=== PATIENT | male | born 1995 | race Caucasian/White ===

== ENCOUNTER 2016-11-22 15:26 | Emergency (ER) | payer OTHER ==
[2016-11-22 15:39] VITALS: BP 155/80; PULSE 96; TEMP 98.1; BMI 26.1
[2016-11-22] MEDS ORDERED: SULFAMETHOXAZOLE/TRIMETHOPRIM 800MG/160MG D.S. TABLET PO ONE (17:08)
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
[2016-11-22] MEDS ORDERED: SULFAMETHOXAZOLE/TRIMETHOPRIM 800MG/160MG D.S. TABLET ONE (17:32)
== END 2016-11-22 17:50 | disposition home or self-care (01) ==
LOC: JERFT 15:26
DX: L02.416 Cutaneous abscess of left lower limb (principal); L02.415 Cutaneous abscess of right lower limb
CPT/HCPCS: 87070; 87186; 87205; 99281-25

== ENCOUNTER 2017-02-02 23:16 | Emergency (ER) | payer OTHER ==
[2017-02-02 23:33] VITALS: BP 147/77; PULSE 101; TEMP 98; BMI 25.0
[2017-02-03 00:56] LABS: URINE APPEARANCE CLEAR; URINE BILIRUBIN NEGATIVE (NEGATIVE); URINE BLOOD NEGATIVE (NEGATIVE); URINE COLOR YELLOW; URINE GLUCOSE (UA) NEGATIVE (NEGATIVE); URINE KETONE NEGATIVE (NEGATIVE); URINE LEUK ESTERASE NEGATIVE (NEGATIVE); URINE NITRITE NEGATIVE (NEGATIVE); URINE PROTEIN NEGATIVE (NEGATIVE); URINE UROBILINOGEN 4.0 E.U/dl E.U./dl (0.2-1.0)
--- NOTE | 2017-02-03 01:47 | PDOC ---
History of Present Illness - General Chief Complaint: Abscess Boil Stated Complaint: BOIL Time Seen by Provider: 02/02/17 23:49 History Source: Patient Exam Limitations: No Limitations - History of Present Illness Initial Comments: 02/03/17 01:42 Patient is a 21 year old male with h/o cellulitis of the right arm here with c/ o tender swelling to the left groin. Patient states the swelling has been there x 1 month but yesterday the swelling became tender. Denies any penile discharge, no cellulitis, STI. pmd: does not remember name PMHX: as above psochx: neg cig, drug, etoh ALL: NKDA GENERAL/CONSTITUTIONAL: [No fever or chills. No weakness. No weight change.] HEAD, EYES, EARS, NOSE AND THROAT: [No change in vision. No ear pain or discharge. No sore throat.] CARDIOVASCULAR: [No chest pain or shortness of breath.] RESPIRATORY: [No cough, wheezing, or hemoptysis.] GASTROINTESTINAL: [No nausea, vomiting, diarrhea or constipation. No rectal bleeding.] GENITOURINARY: [No dysuria, frequency, or change in urination.] MUSCULOSKELETAL: [No joint or muscle swelling or pain. No neck or back pain.] SKIN AND BREASTS: [No rash or easy bruising.] NEUROLOGIC: [No headache, vertigo, loss of consciousness, or loss of sensation.] PSYCHIATRIC: [No depression or anxiety.] ENDOCRINE: [No increased thirst. No abnormal weight change.] HEMATOLOGIC/LYMPHATIC: [No anemia, easy bleeding, or history of blood clots.] ALLERGIC/IMMUNOLOGIC: [No hives or skin allergy. No latex allergy.] GENERAL: [The patient is awake, alert, and fully oriented, in no acute distress. ] HEAD: [Normal with no signs of trauma.] EYES: [Pupils equal, round and reactive to light, extraocular movements intact, sclera anicteric, conjunctiva clear.] ENT: [Ears normal, nares patent, oropharynx clear without exudates. Moist mucous membranes.] NECK: [Normal range of motion, supple without lymphadenopathy, JVD, or masses.] LUNGS: [Breath sounds equal, clear to auscultation bilaterally. No wheezes, and no crackles.] HEART: [Regular rate and rhythm, normal S1 and S2 without murmur, rub.] ABDOMEN: [Soft, nontender, normoactive bowel sounds. No guarding, no rebound. No masses.] ": uncircumcised male, no discharge from the penis, no hernia, cremateric reflexes intact, (+) tender left inguinal node, no swelling noted EXTREMITIES: [Normal range of motion, no edema. No clubbing or cyanosis. No cords, erythema, or tenderness.] NEUROLOGICAL: [Cranial nerves II through XII grossly intact. Normal speech, normal gait.] PSYCH: [Normal mood, normal affect.] SKIN: [Warm, Dry, normal turgor, no rashes or lesions noted.] Past History - Past Medical History Allergies/Adverse Reactions: Allergies Allergy/AdvReac Type Severity Reaction Status Date / Time No Known Allergies Allergy Verified 02/02/17 23:23 Home Medications: Ambulatory Orders Chlorhexidine Gluconate [Hibiclens For Decolonization -] 1 applic TP DAILY #1 bottle 11/22/16 Oxycodone HCl/Acetaminophen [Percocet 5-325 mg Tablet -] 1 - 2 tab PO Q4H PRN # 7 tablet MDD 4 11/22/16 Sulfamethoxazole/Trimethoprim [Bactrim *Ds*] 1 each PO BID #14 tablet 11/22/16 Other medical history: denies - Immunization History Immunization Up to Date: Yes - Psycho/Social/Smoking Cessation Hx Anxiety: No Suicidal Ideation: No Smoking History: Never smoked Have you smoked in the past 12 months: No Number of Cigarettes Smoked Daily: 0 Hx Alcohol Use: No Drug/Substance Use Hx: No Substance Use Type: None *Physical Exam - Vital Signs Last Vital Signs Temp Pulse Resp BP Pulse Ox 98 F 101 H 18 147/77 99 02/02/17 23:20 02/02/17 23:20 02/02/17 23:20 02/02/17 23:20 02/02/17 23:20 ED Treatment Course - ADDITIONAL ORDERS Additional order review: Laboratory Results 02/03/17 00:40 Urine Color Yellow Urine Appearance Clear Urine pH 6.0 Urine Protein Negative Urine Glucose (UA) Negative Urine Ketones Negative Urine Blood Negative Urine Nitrite Negative Urine Bilirubin Negative Urine Urobilinogen 4.0 e.u/dl Ur Leukocyte Esterase Negative Medical Decision Making - Medical Decision Making 02/03/17 01:43 Patient is a 21 year old male with h/o cellulitis of the right arm here with c/ o tender swelling to the left groin consistent with lymphangitis. no source of infection will get labs and GC/chlam. UA neg GC/chlam pending I discussed the physical exam findings, ancillary test results and final diagnoses with the patient. I answered all of the patient's questions. The patient was satisfied with the care received and felt comfortable with the discharge plan and treatment plan. The Patient agrees to follow up with the primary care physician within 24-72 hours. *DC/Admit/Observation/Transfer Diagnosis at time of Disposition: Lymphadenitis - Patient Instructions Printed Discharge Instructions: Chronic Lymphadenitis Additional Instructions: YOU must follow up with your pmd for further testing, which should include HIV testing, if your develop persistent fever, chills, your must return to the ED immediately
== END 2017-02-03 02:17 | disposition home or self-care (01) ==
LOC: JER 23:16
DX: I88.8 Other nonspecific lymphadenitis (principal)
CPT/HCPCS: 36415; 81003; 87491; 87591; 99281-25; 99282-25

== ENCOUNTER 2018-05-11 17:17 | Emergency (ER) | payer OTHER ==
[2018-05-11 17:21] VITALS: BP 135/72; PULSE 114; TEMP 101; BMI 26.6
[2018-05-11] MEDS ORDERED: ACETAMINOPHEN 325 MG TABLET (FP) PO ONE (17:29)
--- NOTE | 2018-05-11 17:29 | PDOC ---
Rapid Medical Evaluation Chief Complaint: Cold Symptoms Time Seen by Provider: 05/11/18 17:29 Medical Evaluation: Allergies Allergy/AdvReac Type Severity Reaction Status Date / Time No Known Allergies Allergy Verified 02/02/17 23:23 Vital Signs Temp Pulse Resp BP Pulse Ox 101 F H 114 H 18 135/72 97 05/11/18 17:18 05/11/18 17:18 05/11/18 17:18 05/11/18 17:18 05/11/18 17:18 05/11/18 17:29 The patient presents with a chief complaint of: sore throat, fever I have performed a brief in-person evaluation of this patient. Pertinent physical exam findings: vss, fever 101 I have ordered the following: tylenol, throat culture The patient will proceed to the ED for further evaluation. 05/11/18 17:29
--- NOTE | 2018-05-11 17:57 | PDOC ---
History of Present Illness - General Chief Complaint: Cold Symptoms Stated Complaint: COLD SYMPTOMS Time Seen by Provider: 05/11/18 17:29 - History of Present Illness Initial Comments: 05/11/18 17:53 23-year-old male with 2 days of sore throat and subjective fever Past History - Past Medical History Allergies/Adverse Reactions: Allergies Allergy/AdvReac Type Severity Reaction Status Date / Time No Known Allergies Allergy Verified 02/02/17 23:23 Home Medications: Ambulatory Orders Amoxicillin Suspension - 10.9 ml PO BID 10 Days #218 ml 05/11/18 COPD: No - Immunization History Immunization Up to Date: Yes - Suicide/Smoking/Psychosocial Hx Smoking History: Never smoked Have you smoked in the past 12 months: No Number of Cigarettes Smoked Daily: 0 Hx Alcohol Use: No Drug/Substance Use Hx: No Substance Use Type: None Review of Systems - Review of Systems Constitutional: Yes: Fever HEENTM: Yes: Throat Pain All Other Systems: Reviewed and Negative *Physical Exam - Vital Signs Last Vital Signs Temp Pulse Resp BP Pulse Ox 101 F H 114 H 18 135/72 97 05/11/18 17:18 05/11/18 17:18 05/11/18 17:18 05/11/18 17:18 05/11/18 17:18 - Physical Exam Comments: HEAD: NC/AT EYES: Conjuntiva clear Ears: Canals and TM's normal NOSE: No d/c THROAT: Moist mucous membrances, oral erythemic with exudate, uvula midline NECK: Supple with anterior adenopathy CARDIAC: S1 S2 LUNGS: CTA Full and Equal breath sounds ABDOMEN: Soft NT ND MS: Full ROM in all joints without edema NEUROLOGIC: No gross sensory or motor deficits, NVID SKIN: Normal color and temperature no lesions or rashes 05/11/18 17:53 ED Treatment Course - Medications Given in the ED: ED Medications Discontinued Medications Generic Name Dose Route Start Last Admin Trade Name Freq PRN Reason Stop Dose Admin Acetaminophen 650 mg 05/11/18 17:29 05/11/18 17:30 Tylenol - PO 05/11/18 17:30 650 mg ONCE ONE Administration Medical Decision Making - Medical Decision Making 05/11/18 17:54 impressive examination I'll treat him with amoxicillin. He is requesting oral suspension. *DC/Admit/Observation/Transfer Diagnosis at time of Disposition: Strep pharyngitis - Discharge Dispostion Disposition: HOME Condition at time of disposition: Stable Decision to Admit order: No - Prescriptions Prescriptions: Amoxicillin Suspension - 10.9 ml PO BID 10 Days #218 ml - Referrals Referrals: Abelardo Pascal [Non Staff, Medical] - - Patient Instructions Printed Discharge Instructions: Strep Throat, DI for Strep Throat Additional Instructions: Return to the emergency room should symptoms worsen or go unresolved. Please take all the antibiotics as directed. He must finish the entire course. Follow- up with the primary care physician in one to 2 days for further evaluation and treatment options. You may take Tylenol and Motrin as directed for pain and fever. Warm salt water gargles 5-6 times a day will help you with your throat pain. - Post Discharge Activity
== END 2018-05-11 18:08 | disposition home or self-care (01) ==
LOC: JERFT 17:17
DX: J02.0 Streptococcal pharyngitis (principal); B95.5 Unspecified streptococcus as the cause of diseases classified elsewhere
CPT/HCPCS: 87070; 87430; 99281-25

== ENCOUNTER 2018-12-15 05:27 | Emergency (ER) | payer OTHER ==
[2018-12-15 06:02] VITALS: TEMP 98.2; BMI 29.2
--- NOTE | 2018-12-15 06:13 | PDOC ---
History of Present Illness - General Chief Complaint: Abscess Boil Stated Complaint: PRIVATE PART PROBLEM Time Seen by Provider: 12/15/18 06:06 History Source: Patient Exam Limitations: No Limitations - History of Present Illness Initial Comments: 23 yo M w a pmh of multiple abscesses and gastric reflux presents to the ER with left testicular pain. He states the pain has been present for the past 4 days and has been getting worse. He says his testicle has been swelling up and no is red and painful. He states he has had many infections like this in the past on his right thigh and right armpit but this is the first time it has happened to his testicle. He denies fevers, chills, infections, dysuria, frequency, or urgency. PCP: Doesn't know his name Urologist: None PSH: Right armpit abscess I&D Social Hx: Smokes marijuana, drinks recreationally, denies cigarettes or other illicit drug usage Allergies: NKA, NKDA Past History - Past Medical History Allergies/Adverse Reactions: Allergies Allergy/AdvReac Type Severity Reaction Status Date / Time No Known Allergies Allergy Verified 12/15/18 06:03 Home Medications: Ambulatory Orders Clindamycin [Cleocin -] 600 mg PO Q8H 7 Days #42 capsule 12/15/18 Lactobacillus Acidophilus [Probiotic] 1 each PO DAILY #7 capsule 12/15/18 COPD: No - Immunization History Immunization Up to Date: Yes - Suicide/Smoking/Psychosocial Hx Smoking History: Never smoked Have you smoked in the past 12 months: No Number of Cigarettes Smoked Daily: 0 Information on smoking cessation initiated: No Hx Alcohol Use: Yes Drug/Substance Use Hx: No Substance Use Type: None Review of Systems - Review of Systems Able to Perform ROS?: Yes Comments:: CONSTITUTIONAL: Absent: fever, no chills, no fatigue EYES: Absent: visual changes ENT: Absent: ear pain, no sore throat CARDIOVASCULAR: Absent: chest pain, no palpitations RESPIRATORY: Absent: cough, no SOB GI: Absent: abdominal pain, no nausea, no vomiting, no constipation, no diarrhea GENITOURINARY: Present: Testicular pain Absent: dysuria, no frequency, no hematuria MUSKULOSKELETAL: Absent: back pain, no arthralgia, no myalgia SKIN: Present: rash NEURO: Absent: headache *Physical Exam - Vital Signs Last Vital Signs Temp Pulse Resp BP Pulse Ox 98.2 F 82 22 H 137/79 98 12/15/18 05:27 12/15/18 05:27 12/15/18 05:27 12/15/18 05:27 12/15/18 05:27 - Physical Exam Comments: GENERAL: Well-appearing, well-nourished. No apparent distress. HEENT: Normocephalic, atraumatic. PERRL, EOM intact. CARDIOVASCULAR: Normal S1, S2. Regular rate and rhythm. PULMONARY: No evidence of respiratory distress. Lungs clear to auscultation bilaterally. No wheezing, rales or rhonchi. ABDOMEN: Soft, non-distended, non-tender. EXTREMITIES: Normal ROM in all four extremities. No gross deformities. SKIN: Warm, dry. NEUROLOGICAL: No focal neurological deficits. Male Genitalia: positive: testicular tenderness (left sided), testicular mass ( there is a painful, erythematous, indurated mass on the inferior pole of the left testicle. ). negative: discharge, epididymus tender, inguinal hernia, CVAT ED Treatment Course - LABORATORY CBC & Chemistry Diagram: 12/15/18 07:22 12/15/18 07:22 Medical Decision Making - Medical Decision Making 23 yo M w a pmh of multiple abscesses and gastric reflux presents to the ER with left testicular pain. He states the pain has been present for the past 4 days and has been getting worse. He says his testicle has been swelling up and no is red and painful. He states he has had many infections like this in the past on his right thigh and right armpit but this is the first time it has happened to his testicle. He denies fevers, chills, infections, dysuria, frequency, or urgency. VS: WNL DDx IBNLT: Testicular abscess, testicular torsion, epydidymitis, orchitis, hydrocele, varicocele, testicular cancer Plan: Labs, urine, testicular US, analgesia, IV hydration, Abx, Urology consult , re-assess. Patient will be signed out to the day team *DC/Admit/Observation/Transfer Diagnosis at time of Disposition: Scrotal abscess - Discharge Dispostion Disposition: HOME Condition at time of disposition: Good Decision to Admit order: No - Prescriptions Prescriptions: Clindamycin [Cleocin -] 600 mg PO Q8H 7 Days #42 capsule Lactobacillus Acidophilus [Probiotic] 1 each PO DAILY #7 capsule - Referrals Referrals: Bryson Middleton MD., [Staff Physician] - - Patient Instructions Printed Discharge Instructions: DI for Scrotal Abscess Additional Instructions: Follow up with your primary doctor within 48 hours. Please call the office of Dr. Middleton in [facility] to set up an appointment. He is expecting your office and states you will get an appointment within the week. Use the antibiotic Clindamycin as prescribed for the infection, use over the counter Tylenol or Motrin for pain as directed on the label and use warm compress for your abscess. Return to the ER immediately for new or concerning symptoms including but not limited to: severe pain not relieved by over the counter medicine, high fevers, worsening swelling/redness even when using antibiotics. elevate your scrotum with tighty whities, the support will help with the pain. Thank you - Post Discharge Activity Forms/Work/School Notes: Back to Work
[2018-12-15] MEDS ORDERED: SODIUM CHLORIDE 0.9% 500 ML INFUS.BAG IV ONE (06:15)
[2018-12-15] MEDS ORDERED: morphine CARPU-JECT 4 MG/1 ML DISP.SYRIN IVPUSH ONE (06:15)
[2018-12-15] MEDS ORDERED: CLINDAMYCIN 600MG PREMIX IVPB 600 MG/50 ML BAG IVPB ONE ×2 (06:18→07:30)
--- NOTE | 2018-12-15 06:26 | PDOC ---
Attending Attestation - Resident Resident Name: Pillo Greco - ED Attending Attestation I have performed the following: I have examined & evaluated the patient, The case was reviewed & discussed with the resident, I agree w/resident's findings & plan - HPI HPI: 12/15/18 06:23 23 yo male with swelling and pain to the left scrotum. - Physicial Exam PE: 12/15/18 06:23 Agree with resident's exam - Medical Decision Making 12/15/18 06:25 24-year-old male with pain and swelling to the left testicle Exam consistent with abscess to the left scrotum IV antibiotics, clindamycin IV given for MRSA coverage due to multiple similar infections in the past Plan for ultrasound and possible urology consultation, signed out to [email or web address]
--- NOTE | 2018-12-15 07:23 | PDOC ---
History of Present Illness <Barron Abbott - Last Filed: 12/15/18 10:08> <Zeenat Blandon - Last Filed: 12/15/18 10:24> - General Chief Complaint: Abscess Boil Stated Complaint: PRIVATE PART PROBLEM Time Seen by Provider: 12/15/18 06:06 Past History - Past Medical History COPD: No - Immunization History Immunization Up to Date: Yes - Suicide/Smoking/Psychosocial Hx Smoking History: Never smoked Have you smoked in the past 12 months: No Number of Cigarettes Smoked Daily: 0 Information on smoking cessation initiated: No Hx Alcohol Use: Yes Drug/Substance Use Hx: No Substance Use Type: None <Barron Abbott - Last Filed: 12/15/18 10:08> <Zeenat Blandon - Last Filed: 12/15/18 10:24> - Past Medical History Allergies/Adverse Reactions: Allergies Allergy/AdvReac Type Severity Reaction Status Date / Time No Known Allergies Allergy Verified 12/15/18 06:03 Home Medications: Ambulatory Orders Clindamycin [Cleocin -] 600 mg PO Q8H 7 Days #42 capsule 12/15/18 Lactobacillus Acidophilus [Probiotic] 1 each PO DAILY #7 capsule 12/15/18 *Physical Exam - Vital Signs Last Vital Signs Temp Pulse Resp BP Pulse Ox 98.2 F 82 22 H 137/79 98 12/15/18 05:27 12/15/18 05:27 12/15/18 05:27 12/15/18 05:27 12/15/18 05:27 <Barron Abbott - Last Filed: 12/15/18 10:08> - Vital Signs Last Vital Signs Temp Pulse Resp BP Pulse Ox 98.2 F 82 22 H 137/79 98 12/15/18 05:27 12/15/18 05:27 12/15/18 05:27 12/15/18 05:27 12/15/18 05:27 <Zeenat Blandon - Last Filed: 12/15/18 10:24> ED Treatment Course - LABORATORY CBC & Chemistry Diagram: 12/15/18 07:22 12/15/18 07:22 <Barron Abbott - Last Filed: 12/15/18 10:08> - LABORATORY CBC & Chemistry Diagram: 12/15/18 07:22 12/15/18 07:22 - ADDITIONAL ORDERS Additional order review: Laboratory Results 12/15/18 12/15/18 09:00 07:22 Sodium 140 Potassium 4.0 Chloride 107 Carbon Dioxide 28 Anion Gap 5 L BUN 22 H Creatinine 1.0 Creat Clearance w eGFR 93.44 Random Glucose 99 Calcium 8.8 Total Bilirubin 0.5 AST 24 ALT 21 Alkaline Phosphatase 75 Total Protein 7.1 Albumin 4.0 Urine Color Yellow Urine Appearance Clear Urine pH 7.0 Ur Specific [place] 1.023 Urine Protein Negative Urine Glucose (UA) Negative Urine Ketones Negative Urine Blood Negative Urine Nitrite Negative Urine Bilirubin Negative Urine Urobilinogen 1.0 Ur Leukocyte Esterase Negative 12/15/18 07:22 RBC 4.69 MCV 87.5 MCHC 35.0 RDW 12.7 MPV 7.2 L Neutrophils % 74.4 Lymphocytes % 14.7 D Monocytes % 7.1 D Eosinophils % 3.4 D Basophils % 0.4 - Medications Given in the ED: ED Medications Discontinued Medications Generic Name Dose Route Start Last Admin Trade Name Steve PRN Reason Stop Dose Admin Acetaminophen 975 mg 12/15/18 09:47 12/15/18 09:54 Tylenol - PO 12/15/18 09:48 Not Given ONCE ONE Clindamycin Phosphate 600 mg in 50 mls @ 100 mls/hr 12/15/18 06:18 12/15/18 07:15 Cleocin 600 Mg Premix Ivpb - IVPB 12/15/18 06:47 100 mls/hr ONCE ONE Administration Protocol Ketorolac Tromethamine 30 mg 12/15/18 09:33 12/15/18 09:40 Toradol Injection - IVPUSH 12/15/18 09:34 30 mg ONCE ONE Administration Morphine Sulfate 4 mg 12/15/18 06:15 12/15/18 07:15 Morphine Injection - IVPUSH 12/15/18 06:16 4 mg ONCE ONE Administration Sodium Chloride 1,000 ml 12/15/18 06:15 12/15/18 07:15 Normal Saline - IV 12/15/18 06:16 1,000 ml ONCE ONE Administration <Zeenat Blandon - Last Filed: 12/15/18 10:24> Medical Decision Making - Medical Decision Making 12/15/18 07:15 S/O from night team 23 yo male pmh of multiple abscess presents to the ED for left scrotal swelling , redness and pain. Denies F/C/N?V, dysuria, increased frequency or urgency on urination. Labs, UA and US pending. Pt NAD, resting comfortably dr Garza imaging general medical practitioner states there is a 1 cm fluid collection in the scrotum that is not large enough for drainage at this time. Call placed to Urology, Dr. Middleton states Clinda for 7 days, warm compresses are recommended and f/u in office later this week will be scheduled when pt calls office. Pain controlled Urine neg CBC mild leukocytosis. Pt denies systemic s/s, temp WNL CMP WNL Pt can be safely DC home with Urology F/U as described above Pt understands and agrees with plan <Barron Abbott - Last Filed: 12/15/18 10:08> *DC/Admit/Observation/Transfer - Discharge Dispostion Decision to Admit order: No <Barron Abbott - Last Filed: 12/15/18 10:08> - Discharge Dispostion Decision to Admit order: No <Zeenat Blandon - Last Filed: 12/15/18 10:24> Diagnosis at time of Disposition: Scrotal abscess - Discharge Dispostion Disposition: HOME Condition at time of disposition: Good - Prescriptions Prescriptions: Clindamycin [Cleocin -] 600 mg PO Q8H 7 Days #42 capsule Lactobacillus Acidophilus [Probiotic] 1 each PO DAILY #7 capsule - Referrals Referrals: Bryson Middleton MD., MD [Staff Physician] - - Patient Instructions Printed Discharge Instructions: DI for Scrotal Abscess Additional Instructions: Follow up with your primary doctor within 48 hours. Please call the office of Dr. Middleton in [facility] to set up an appointment. He is expecting your office and states you will get an appointment within the week. Use the antibiotic Clindamycin as prescribed for the infection, use over the counter Tylenol or Motrin for pain as directed on the label and use warm compress for your abscess. Return to the ER immediately for new or concerning symptoms including but not limited to: severe pain not relieved by over the counter medicine, high fevers, worsening swelling/redness even when using antibiotics. elevate your scrotum with tighty whities, the support will help with the pain. Thank you - Post Discharge Activity Forms/Work/School Notes: Back to Work
[2018-12-15] MEDS ORDERED: MORPHINE SULFATE 8 MG/ML VIAL ONE (07:29)
[2018-12-15 08:01] LABS: ALK PHOS 75 U/L (45-117); ANION GAP 5 MMOL/L (8-16); BILIRUBIN,TOTAL 0.5 mg/dL (0.2-1); BLOOD UREA NITROGEN 22 mg/dL (7-18); CALCIUM 8.8 mg/dL (8.5-10.1); CHLORIDE 107 mmol/L (98-107); CO2 28 mmol/L (21-32); GLUCOSE,RANDOM 99 mg/dL (74-106); SGOT/AST 24 U/L (15-37); SGPT/ALT 21 U/L (13-61); SODIUM 140 mmol/L (136-145); TOT PROT 7.1 g/dl (6.4-8.2)
[2018-12-15 08:14] LABS: BASO % 0.4 % (0-2.0); EOS % 3.4 % (0-4.5); HEMOGLOBIN 14.3 GM/dL (11.7-16.9); LYMPH % 14.7 % (8-40); MCH 30.6 pg (25.7-33.7); MEAN CELL VOLUME 87.5 fl (80-96); MEAN PLT VOLUME 7.2 fl (7.5-11.1); MONO % 7.1 % (3.8-10.2); NEUT % 74.4 % (42.8-82.8); PLATELET COUNT 280 K/MM3 (134-434); RBC 4.69 M/mm3 (4.00-5.60); RDW 12.7 % (11.9-15.9); WHITE BLOOD COUNT 12.9 K/mm3 (4.0-10.0)
[2018-12-15 09:28] LABS: URINE APPEARANCE CLEAR; URINE BILIRUBIN NEGATIVE (NEGATIVE); URINE COLOR YELLOW; URINE GLUCOSE (UA) NEGATIVE (NEGATIVE); URINE KETONE NEGATIVE (NEGATIVE); URINE LEUK ESTERASE NEGATIVE (NEGATIVE); URINE NITRITE NEGATIVE (NEGATIVE); URINE PROTEIN NEGATIVE (NEGATIVE)
[2018-12-15] MEDS ORDERED: KETOROLAC TROMETHAMINE 30 MG/1 ML VIAL IVPUSH ONE (09:33)
[2018-12-15] MEDS ORDERED: KETOROLAC TROMETHAMINE 30 MG/1 ML VIAL ONE (09:36)
[2018-12-15] MEDS ORDERED: ACETAMINOPHEN 325 MG TABLET (FP) PO ONE (09:47)
[2018-12-15] MEDS ORDERED: ONDANSETRON *ODT* 4 MG TABLET SL ONE (10:23)
[2018-12-15] MEDS ORDERED: ONDANSETRON *ODT* 4 MG TABLET ONE (10:27)
[2018-12-15 11:14] VITALS: BP 128/74; PULSE 78
== END 2018-12-15 11:14 | disposition home or self-care (01) ==
LOC: JER 05:27
PROC: 3E03329 Introduction of Other Anti-infective into Peripheral Vein, Percutaneous Approach (ICD-10-PCS; principal; 2018-12-15)
PROC: 3E033NZ Introduction of Analgesics, Hypnotics, Sedatives into Peripheral Vein, Percutaneous Approach (ICD-10-PCS; 2018-12-15)
PROC: 3E0333Z Introduction of Anti-inflammatory into Peripheral Vein, Percutaneous Approach (ICD-10-PCS; 2018-12-15)
DX: N45.4 Abscess of epididymis or testis (principal)
CPT/HCPCS: 36415; 76870-TC; 80053; 81003; 85025; 87086; 96365; 96375; 99282-25; Q0162